=== PATIENT | male | born 1945 | race Caucasian/White ===

== ENCOUNTER 2018-02-11 15:45 | Emergency (ER) | payer OTHER ==
--- NOTE | 2018-02-11 15:48 | PDOC ---
Rapid Medical Evaluation Time Seen by Provider: 02/11/18 15:48 Medical Evaluation: Allergies Allergy/AdvReac Type Severity Reaction Status Date / Time No Known Allergies Allergy Verified 09/13/13 09:49 02/11/18 15:48 72 year old male with anemia, HTN, SVT, former smoker presenting with dizziness for several days, much worse when standing up. Denies CP, SOB, palpitations. V/s notable for HR 43, normotensive. Alert, oriented, no distress. Irregular rhythm, bradycardic. Lungs CTAB. Plan: -EKG -Cardiac labs -CXR -To Main ED for further evaluation
[2018-02-11 15:53] VITALS: TEMP 97.5; BMI 21.4
--- NOTE | 2018-02-11 16:23 | PDOC ---
History of Present Illness - General History Source: Patient Exam Limitations: No Limitations - History of Present Illness Initial Comments: 02/11/18 16:53 The patient is a 72 year old irish-speaking male, accompanied by family, with a significant past medical history of hypertension, CT(s/p cardiac Catheterization in 04/28, s/p stent placement, on Plavix), SVT, and anemia, who presents to the emergency department with dizziness and lightheadedness since yesterday. The patient reports acute onset of dizziness while at rest. Patient reports 2-3 episodes yesterday. Today, he reports new onset of intermittent lightheadedness. He denies any headache, changes in vision, tinnitus, fever, or chills. He denies any chest pain, shortness of breath, diaphoresis, or palpitations. He denies any abdominal pain, nausea, or vomiting. The patient reports he has been on Plavix since his stent placement, however, he recently ran out of his medications, and was given a new prescription for Plavix. Patient reports he was also prescribed a Beta shahid at the time. Patient reports he last traveled in October 2017. He denies any recent illness or changes in appetite. Allergies: NKDA Past Surgical History: Cardiac Catheterization, Cardiac stent placement Social History: Former smoker. No ETOH or recreational drug use. PCP/[facility] [employer] Operator: Patient reports he is closely followed by his PCP and [facility] Operator in the [place]. <Emmanuel Lawton - Last Filed: 02/11/18 18:22> - General History Source: Patient Exam Limitations: No Limitations <Melissa Goff - Last Filed: 02/13/18 10:34> - General Chief Complaint: Lightheaded Stated Complaint: DIZZINESS Time Seen by Provider: 02/11/18 15:48 Past History <Emmanuel Lawton - Last Filed: 02/11/18 18:22> - Past Medical History Anemia: Yes COPD: No - Surgical History Abdominal Surgery: Yes (stomach ulcer) - Suicide/Smoking/Psychosocial Hx Smoking History: Former smoker Have you smoked in the past 12 months: No Number of Cigarettes Smoked Daily: 0 Information on smoking cessation initiated: No Hx Alcohol Use: No Substance Use Type: None <Melissa Goff - Last Filed: 02/13/18 10:34> - Past Medical History Allergies/Adverse Reactions: Allergies Allergy/AdvReac Type Severity Reaction Status Date / Time No Known Allergies Allergy Verified 02/11/18 18:10 Home Medications: Ambulatory Orders Carvedilol [Coreg] 6.25 mg PO BID 09/13/13 Multivits,Therap W-Fe,Hematin [Yrvyu-H-Pnuq] 1 each PO DAILY 09/13/13 Ramipril [Altace] 2.5 mg PO DAILY 09/13/13 Review of Systems - Review of Systems Able to Perform ROS?: Yes Comments:: 02/11/18 16:53 GENERAL/CONSTITUTIONAL: No fever or chills. No weakness. HEAD, EYES, EARS, NOSE AND THROAT: No change in vision. No ear pain or discharge. No sore throat. CARDIOVASCULAR: No chest pain or shortness of breath. RESPIRATORY: No cough, wheezing, or hemoptysis. GASTROINTESTINAL: No nausea, vomiting, diarrhea or constipation. GENITOURINARY: No dysuria, frequency, or change in urination. MUSCULOSKELETAL: No joint or muscle swelling or pain. No neck or back pain. SKIN: No rash NEUROLOGIC: +Dizziness, lightheadedness. No headache, loss of consciousness, or change in strength/sensation. ENDOCRINE: No increased thirst. No abnormal weight change. HEMATOLOGIC/LYMPHATIC: No anemia, easy bleeding, or history of blood clots. ALLERGIC/IMMUNOLOGIC: No hives or skin allergy. <Emmanuel Lawton - Last Filed: 02/11/18 18:22> *Physical Exam - Vital Signs Last Vital Signs Temp Pulse Resp BP Pulse Ox 97.5 F L 43 L 18 139/81 100 02/11/18 15:49 02/11/18 15:49 02/11/18 15:49 02/11/18 15:49 02/11/18 15:49 - Physical Exam Comments: 02/11/18 16:53 GENERAL: The patient is in no acute distress. HEAD: Normal with no signs of trauma. EYES: PERRLA, EOMI, sclera anicteric, conjunctiva clear. ENT: Ears normal, nares patent, oropharynx clear without exudates. Moist mucous membranes. NECK: Normal range of motion, supple without lymphadenopathy, JVD, or masses. LUNGS: Breath sounds equal, clear to auscultation bilaterally. No wheezes, and no crackles. HEART: Regular rate and rhythm, normal S1 and S2 without murmur, rub or gallop. ABDOMEN: Soft, nontender, normoactive bowel sounds. No guarding, no rebound. No masses palpable. EXTREMITIES: Normal range of motion, no edema. No clubbing or cyanosis. No erythema, or tenderness. NEUROLOGICAL: Cranial nerves II through XII grossly intact. Normal speech. No focal neurological deficits. MUSCULOSKELETAL: Back non-tender to palpation, no CVA tenderness SKIN: Warm, Dry, normal turgor, no rashes or lesions noted. <Emmanuel Lawton - Last Filed: 02/11/18 18:22> - Vital Signs Last Vital Signs Temp Pulse Resp BP Pulse Ox 97.5 F L 43 L 18 139/81 100 02/11/18 15:49 02/11/18 15:49 02/11/18 15:49 02/11/18 15:49 02/11/18 15:49 <Melissa Goff - Last Filed: 02/13/18 10:34> ED Treatment Course - LABORATORY CBC & Chemistry Diagram: 02/11/18 15:17 02/11/18 15:17 - ADDITIONAL ORDERS Additional order review: 02/11/18 15:17 RBC 5.24 D MCV 78.4 L MCHC 31.3 L RDW 17.4 H D MPV 9.3 Neutrophils % 60.1 Lymphocytes % 22.3 D Monocytes % 12.2 H Eosinophils % 4.6 H Basophils % 0.8 <Emmanuel Lawton - Last Filed: 02/11/18 18:22> - LABORATORY CBC & Chemistry Diagram: 02/11/18 15:17 02/11/18 15:17 <Melissa Goff - Last Filed: 02/13/18 10:34> Medical Decision Making - Medical Decision Making 02/11/18 18:11 Mr. Mcneal is a 72-year-old male with a history of hypertension and SVT who presents to the emergency department with a complaint of lightheadedness and dizziness. Patient's is followed closely in the [place], does not have a physician here. States he has noted lightheadedness/dizziness for the past 2 days. He denies chest pain or shortness of breath. No palpitations. No nausea, vomiting, diarrhea, chest pain, abdominal pain. Yesterday patient stated his symptoms were vertigo. Today he states his symptoms are lightheadedness No fevers or chills. He has had 2-3 episodes daily for the past 2 days. Symptoms last approximately one hour and self resolved. Not related to exertion or standing. Patient states he does not feel lightheaded at this moment Examination is normal Heart is regular rate and rhythm no murmur Lungs are clear No abdominal tenderness No nystagmus, no focal neurological deficits. DD: Symptomatic bradycardia, ACS, orthostasis, Will do: Labs, EKG, 02/11/18 18:19 EKG: Sinus Bradycardia, rate of 46 bpm, early repolarization, upright t waves, 02/11/18 18:51 Laboratory Tests 02/11/18 02/11/18 15:17 15:17 WBC 6.9 Hgb 12.9 D Hct 41.1 D Plt Count 213 Sodium 138 Potassium 4.2 Chloride 103 Carbon Dioxide 29 BUN 11 D Creatinine 1.1 D Random Glucose 90 Alkaline Phosphatase 110 D Creatine Kinase 91 Troponin I 0.02 D B-Natriuretic Peptide 93.02 Will repeat Tropinin at 8pm Pt does not want to stay in the hospital because of his lack of insurance Pt signed out to Dr Ojeda He will AMA Clinical Impression: lightheadedness, initial presentation dizziness, initial presentation <Melissa Goff - Last Filed: 02/13/18 10:34> *DC/Admit/Observation/Transfer - Attestations Scribe Attestion: 02/11/18 16:53 Documentation prepared by Emmanuel Lawton, acting as medical technologist blood bank for Melissa Goff MD. <Emmanuel Lawton - Last Filed: 02/11/18 18:22> <Melissa Goff - Last Filed: 02/13/18 10:34> Diagnosis at time of Disposition: Dizziness, Chest pain - Discharge Dispostion Disposition: HOME Condition at time of disposition: Improved - Referrals Referrals: Jonatan Gillis MD [Staff Physician] - Mukesh Alejo MD [Staff Physician] - - Patient Instructions Printed Discharge Instructions: DI for Chest Pain, DI for Dizziness-Nonvertigo Additional Instructions: Please follow up with your doctor as soon as you get home to the [facility]. Print Language: VIETNAMESE
[2018-02-11 16:45] LABS: BASO % 0.8 % (0-2.0); EOS % 4.6 % (0-4.5); HEMATOCRIT 41.1 % (35.4-49); HEMOGLOBIN 12.9 GM/dL (11.7-16.9); LYMPH % 22.3 % (8-40); MCH 24.5 pg (25.7-33.7); MCHC 31.3 g/dl (32.0-35.9); MEAN CELL VOLUME 78.4 fl (80-96); MEAN PLT VOLUME 9.3 fl (7.5-11.1); MONO % 12.2 % (3.8-10.2); NEUT % 60.1 % (42.8-82.8); PLATELET COUNT 213 K/MM3 (134-434); RBC 5.24 M/mm3 (4.00-5.60); RDW 17.4 % (11.9-15.9); WHITE BLOOD COUNT 6.9 K/mm3 (4.0-10.0)
[2018-02-11 17:10] LABS: INR 1.04 (0.82-1.09); PROTHROMBIN TIME (PATIENT) 11.8 SEC (9.7-13.0)
[2018-02-11 17:16] VITALS: BP 131/81; PULSE 45
[2018-02-11 17:17] LABS: ALBUMIN 4.1 g/dl (3.4-5.0); ANION GAP 6 (8-16); BILIRUBIN,TOTAL 0.7 mg/dL (0.2-1.0); BLOOD UREA NITROGEN 11 mg/dL (7-18); CALCIUM 8.9 mg/dL (8.5-10.1); CHLORIDE 103 mmol/L (98-107); CO2 29 mmol/L (21-32); CREATININE 1.1 mg/dL (0.7-1.3); GLUCOSE,RANDOM 90 mg/dL (74-106); POTASSIUM 4.2 mmol/L (3.5-5.1); SGOT/AST 29 U/L (15-37); SGPT/ALT 24 U/L (12-78); SODIUM 138 mmol/L (136-145); TOT PROT 8.2 g/dl (6.4-8.2)
[2018-02-11 17:20] LABS: ALK PHOS 110 U/L (45-117); N-TERMINAL BNP 93.02 pg/ml (5-125)
--- NOTE | 2018-02-11 22:40 | PDOC ---
*Physical Exam - Vital Signs Last Vital Signs Temp Pulse Resp BP Pulse Ox 97.5 F L 45 L 18 131/81 100 02/11/18 15:49 02/11/18 17:14 02/11/18 15:49 02/11/18 17:14 02/11/18 15:49 ED Treatment Course - LABORATORY CBC & Chemistry Diagram: 02/11/18 15:17 02/11/18 15:17 - ADDITIONAL ORDERS Additional order review: Laboratory Results 02/11/18 02/11/18 02/11/18 21:30 15:17 15:17 PT with INR 11.80 INR 1.04 Sodium 138 Potassium 4.2 Chloride 103 Carbon Dioxide 29 Anion Gap 6 L BUN 11 D Creatinine 1.1 D Creat Clearance w eGFR > 60 Random Glucose 90 Calcium 8.9 Total Bilirubin 0.7 D AST 29 D ALT 24 D Alkaline Phosphatase 110 D Creatine Kinase 67 91 Troponin I 0.03 D 0.02 D B-Natriuretic Peptide 93.02 Total Protein 8.2 D Albumin 4.1 02/11/18 15:17 RBC 5.24 D MCV 78.4 L MCHC 31.3 L RDW 17.4 H D MPV 9.3 Neutrophils % 60.1 Lymphocytes % 22.3 D Monocytes % 12.2 H Eosinophils % 4.6 H Basophils % 0.8 Medical Decision Making - Medical Decision Making 02/11/18 22:37 Pt feels better at this time. [place] Pt will be flying on Friday and will see his doctors on Friday. *DC/Admit/Observation/Transfer Diagnosis at time of Disposition: Dizziness Chest pain Qualifiers: Chest pain type: unspecified Qualified Code(s): R07.9 - Chest pain, unspecified - Discharge Dispostion Disposition: HOME Condition at time of disposition: Improved Admit: No - Referrals Referrals: Mukesh Alejo MD [Staff Physician] - Jonatan Gillis MD [Staff Physician] - - Patient Instructions Printed Discharge Instructions: DI for Dizziness-Nonvertigo, DI for Chest Pain Additional Instructions: Please follow up with your doctor as soon as you get home to the [facility]. Print Language: BULGARIAN - Post Discharge Activity
--- NOTE | 2018-02-12 11:28 | EKG ---
Test Reason : Blood Pressure : / mmHG Vent. Rate : 043 BPM Atrial Rate : 043 BPM P-R Int : 192 ms QRS Dur : 092 ms QT Int : 454 ms P-R-T Axes : 070 -25 057 degrees QTc Int : 383 ms MARKED SINUS BRADYCARDIA POSSIBLE LEFT ATRIAL ENLARGEMENT ST ELEVATION, CONSIDER EARLY REPOLARIZATION ABNORMAL ECG WHEN COMPARED WITH ECG OF 14-SEP-2013 08:58, NO SIGNIFICANT CHANGE WAS FOUND Confirmed by MARIEL BILLY, KARLI ([id number]) on 02/12/2018 11:28:45 AM Referred By: Confirmed By:KARLI FLOYD MD
--- NOTE | 2018-02-12 11:29 | EKG ---
Test Reason : Blood Pressure : / mmHG Vent. Rate : 046 BPM Atrial Rate : 046 BPM P-R Int : 196 ms QRS Dur : 094 ms QT Int : 446 ms P-R-T Axes : 064 -20 049 degrees QTc Int : 390 ms SINUS BRADYCARDIA POSSIBLE LEFT ATRIAL ENLARGEMENT ST ELEVATION, CONSIDER EARLY REPOLARIZATION BORDERLINE ECG WHEN COMPARED WITH ECG OF 11-FEB-2018 15:58, NO SIGNIFICANT CHANGE WAS FOUND Confirmed by MARIEL BILLY, KARLI ([id number]) on 02/12/2018 11:29:14 AM Referred By: Confirmed By:KARLI FLOYD MD
== END 2018-02-11 23:06 | disposition home or self-care (01) ==
LOC: JER 15:45
DX: R07.9 Chest pain, unspecified (principal); R42 Dizziness and giddiness; I10 Essential (primary) hypertension; I25.2 Old myocardial infarction; Z95.5 Presence of coronary angioplasty implant and graft; I47.1 Supraventricular tachycardia
CPT/HCPCS: 36415; 71045-TC-FY; 80053; 82550; 83880; 84484; 85025; 85610; 93005; 93010; 99284-25